=== PATIENT | male | born 1975 | race Caucasian/White ===

== ENCOUNTER 2018-11-17 21:47 | Emergency (ER) | payer OTHER | END 2018-11-17 23:15 | disposition home or self-care (01) | LOC: E/R 21:47 | DX: F10.920 Alcohol use, unspecified with intoxication, uncomplicated (principal); R40.2142 Coma scale, eyes open, spontaneous, at arrival to emergency department; R40.2362 Coma scale, best motor response, obeys commands, at arrival to emergency department; R40.2242 Coma scale, best verbal response, confused conversation, at arrival to emergency department | CPT/HCPCS: 99282 ==